=== PATIENT | male | born 1975 | race Two or more races ===

== ENCOUNTER 2016-12-04 00:58 | Emergency (ER) | payer BC ==
[~2016-12-04] VITALS: Ht 175.3 cm; Wt 77.1 kg
[2016-12-04 01:02] VITALS: BP 131/76
[2016-12-04] MEDS ORDERED: NKM (01:02)
[2016-12-04 04:14] VITALS: BP 122/79
[2016-12-04 04:58] VITALS: BP 122/79
--- NOTE | 2016-12-04 09:19 | Diagnostic Imaging Report ---
Indication: Headache Technique: Contiguous 5 mm thick transaxial imaging of the head obtained in a Siemens Sensation [address] scanner. Soft tissue and bone windows generated. Total Dose length Product (DLP): [address] Dose Index Volume (CTDIvol): 70.38 mGy Comparison: none Findings: The size and configuration of the cortical sulci, basal cisterns, and ventricles are within normal limits for age. There is no mass effect, midline shift, or edema identified. There is no evidence of acute hemorrhage or abnormal intra-axial or extra-axial fluid collections. The bones and soft tissues are unremarkable. Impression: No mass effect, edema or acute bleed. [facility] has communicated the preliminary results to the Emergency Department. Their findings are largely concordant with this report. The CT scanner at [facility] is accredited by the [employer] and the scans are performed using dose optimization techniques as appropriate to a performed exam including Automatic Exposure control.
--- NOTE | 2016-12-07 10:13 | Emergency Room Report ---
History of Present Illness General Chief Complaint: Head Injury Source: Patient, EMS Present Illness HPI Patient's 41-year-old male who presented for increased altered mental status. Patient was found lying down in the street. The patient had been noted to have some trauma to the back of his head. He is brought in by EMS. History is limited by patient's mental status. Allergies: Coded Allergies: No Known Allergies (Unverified , 12/04/16) Patient History Past Medical History: see triage record Reviewed Nursing Documentation: PMH: Agreed, PSxH: Agreed Nursing Documentation-PMH Past Medical History: No Stated History Review of Systems All Other Systems: limited - by mental status Physical Exam Vital Signs Date Time Temp Pulse Resp B/P Pulse Ox O2 Delivery O2 Flow Rate FiO2 12/04/16 00:57 98.2 81 18 131/76 98 Room Air Sp02 EP Interpretation: reviewed, normal General Appearance: normal inspection, well appearing, no apparent distress, alert, GCS 15, non-toxic Head: other - occipital scalp swelling and abrasion without laceration ENT: normal ENT inspection, hearing grossly normal, normal voice Neck: normal inspection, full range of motion, supple, no bony tend Respiratory: normal inspection, lungs clear, normal breath sounds, no respiratory distress, no retraction, no wheezing Cardiovascular #1: regular rate, rhythm, no edema Gastrointestinal: normal inspection, normal bowel sounds, non tender, soft, no guarding, no hernia Genitourinary: no CVA tenderness Musculoskeletal: normal inspection, back normal, normal range of motion Neurologic: alert, responsive, speech normal Psychiatric: normal inspection, judgement/insight normal, mood/affect normal Skin: normal color, no rash, other - occipital scalp abrasion Medical Decision Making Diagnostic Impression: Primary Impression: Acute head injury Additional Impression: Alcohol intoxication ER Course Patient presented for head injury. Differential diagnosis included was not limited to head contusion, intracranial hemorrhage, fracture, among others.Because of complexity of patient's case laboratory testing and imaging studies were ordered. Laboratory testing was notable for elevated blood alcohol level. CT imaging of the head was ordered due to patient's recent trauma and altered mental status. CT the head read by radiology showed no acute fracture or hemorrhage. The patient gradually improving mental status. At the time of discharge patient was awake alert oriented and able to care for himself. He was ambulatory without assistance. The patient is advised to follow up with primary care doctor in 1-2 days. Patient is advised to return if any worsening condition or if any changes in status that are concerning. Last Vital Signs Date Time Temp Pulse Resp B/P Pulse Ox O2 Delivery O2 Flow Rate FiO2 12/04/16 04:58 98.2 89 18 122/79 98 Room Air Status: improved Disposition: HOME, SELF-CARE Condition: Stable Referrals: NOT CHOSEN IPA/MD,REFERRING (PCP) Departure Forms: Return to Work Return to Work in (Days): 2 Patient Instructions: Alcohol Intoxication Sebastian Muñoz Dec 07, 2016 10:13
== END 2016-12-04 04:58 | disposition home or self-care (01) ==
LOC: EDBD 00:58 → EMR 01:25
DX: S09.90XA Unspecified injury of head, initial encounter (principal); F10.129 Alcohol abuse with intoxication, unspecified; X58.XXXA Exposure to other specified factors, initial encounter; Y93.9 Activity, unspecified; Y92.9 Unspecified place or not applicable
CPT/HCPCS: 70450; 99284